=== PATIENT | male | born 1970 | race Caucasian/White ===

== ENCOUNTER 2024-04-06 05:03 | Observation (INO) ==
--- NOTE | 2024-02-24 14:03 | PAT Medication Instructions ---
Medication Instructions Date of Service February 24, 2024 Home Medications acetaminophen 325 mg tablet (Tylenol) 325 mg PO DAILY meloxicam 15 mg tablet 15 mg PO DAILY nebivolol 5 mg tablet 15 mg PO QAM MEDICATION INSTRUCTIONS: ASK your surgeon for instructions meloxicam 15 mg tablet 15 mg PO DAILY Take morning of surgery With a small sip of water, OTHERWISE NOTHING TO EAT OR DRINK AFTER MIDNIGHT: acetaminophen 325 mg tablet (Tylenol) 325 mg PO DAILY nebivolol 5 mg tablet 15 mg PO QAM Other Notes If you have any questions please call us at [phone] or [phone] or [phone] or [phone]
--- NOTE | 2024-03-09 14:55 | Anesthesiology Consultation ---
Date of Service March 09, 2024 Assessment & Plan (1) Encounter for pre-operative examination: - Outpatient joint assessment: Patient is currently scheduled for inpatient pathway. If re-evaluated and patient/surgeon requests outpatient pathway, patient is acceptable candidate for outpatient joint program from anesthesia standpoint pending surgeon's office assessment of pt motivation/support/completion of same day joint program preop requirements. Chart Review Chart Review: Acceptable Risk for Surgery and Patient seen in Pre Admission Testing Teaching & Discussion Pre-Anesthesia Teaching/Discussion Notes: Instructed NPO after midnight before surgery, except medications with 15 cc of water. Medication instructions provided according to the PAT guidelines. History Surgery Operation Date: 04/06/24 07:00 Proposed Procedures p Right Total Knee Arthroplasty - Brett Hoover MD Height/Weight Height: 5 ft 9 in Weight: 109.4 kg Allergies Allergy/AdvReac Type Severity Reaction Status Date / Time No Known Allergies Allergy Verified 02/24/24 12:07 Medications Home Medications Medication Instructions Recorded Confirmed Last Taken acetaminophen 325 mg tablet 325 mg PO DAILY 02/24/24 02/24/24 Unknown (Tylenol) meloxicam 15 mg tablet 15 mg PO DAILY 02/24/24 02/24/24 Unknown nebivolol 5 mg tablet 15 mg PO QAM 02/24/24 02/24/24 Unknown cholecalciferol (vitamin D3) 25 25 mcg PO QAM 03/09/24 03/09/24 Unknown mcg (1,000 unit) chewable tablet (Vitamin D3) magnesium 100 mg tablet mg PO QAM 03/09/24 03/09/24 Unknown omega 5-jkc-ijz-fish oil 120 cap PO QAM 03/09/24 Unknown mg-180 mg-500 mg capsule (Fish Oil) Additional Notes: Patient was instructed to stop magnesium and Vitamin D the day of surgery and to stop fish oil 2 weeks before surgery. This was also written on provided medication instructions. He verbalized understanding and agreement, denied questions, concerns or additional medications. Past Medical History Medical History (Updated 03/14/24 @ 16:41 by Jane Matta PA-C) HTN (hypertension) controlled, stable per pt Knee pain Patient denies h/o stroke, seizures, heart attack, heart failure, DM, blood clots/DVTs or blood transfusions. Exercise / Class Metabolic Activity II 4-5 Yardwork/Stairs/Walk up hill (ambulates with cane at home, denies chest discomfort or shortness of breath with one flight of stairs) Past Family History Family History Other No family history of adverse response to anesthesia Past Surgical History Surgical History History of vasectomy Past Anesthesia History No Hx of Anesthesia Complications and No Family Hx of Anesthesia Complications History of PONV No Hx of PONV and No Hx of Motion Sickness Social History Smoking Status: Former smoker Do You Dip or Chew Tobacco: No Smoking End Date: 2 mos ago Hx Alcohol Use: Yes Alcohol type: beer alcohol intake frequency: 0-2 drinks per day (2-3 beers daily) Hx Substance Use: No substance use type: does not use Review of Systems Patient denies chest pain, shortness of breath, dyspnea on exertion, snoring, witnessed apneas, reflux, fever, chills, cough, wheezing, or palpitations. Physical Exam Vital Signs Vitals BP 149/100 initial left arm automatic reading; repeat reading after several minutes of patient resting with feet flat on floor 147/98 manual left arm (Patient notes that he is stressed regarding surgery and knee pain) P 70 TEMP 98.2 SP02 97% on RA RESP 18 Physical Patient resting comfortably in chair in no acute distress, alert and oriented, responding appropriately throughout visit Full cervical extension range of motion without pain TMD 3.5 finger breadths Mallampati Score 2 Dentition: one crown, denies chipped or loose teeth, implants or bridges Lungs: normal respiratory effort. Good air movement, clear throughout to auscultation, no adventitious breath sounds Cardiac: regular rate and rhythm, no murmurs noted Carotid arteries: negative bruit bilat Lab Results Anesthesia Preop Results Results Anesthesia Widget: WBC 8.35 K/ul (4.8-10.8) 03/09/24 Hgb 15.6 g/dl (14.0-18.0) 03/09/24 Hct 44.0 % (42.0-52.0) 03/09/24 Plt 211 K/uL (130-400) 03/09/24 Na 131 mmol/L (136-145) L 03/09/24 K 4.3 mmol/L (3.5-5.1) 03/09/24 Cl 99 mmol/L (98-107) 03/09/24 CO2 21 mmol/L (21-32) 03/09/24 BUN 17 mg/dl (6-23) 03/09/24 Creat 0.87 mg/dl (0.6-1.4) 03/09/24 Glucose Level 92 mg/dl (70-99(Fasting)) 03/09/24 PT 12.1 Seconds (9.0-12.0) H 03/09/24 PTT 29 Seconds (21-31) 03/09/24 INR 1.1 (0.9-1.1) 03/09/24 Urine Color Yellow 03/09/24 Urine Appearance Clear (Clear) 03/09/24 Urine pH 5.5 (4.5-7.5) 03/09/24 Urine Specific [place] 1.006 (1.000-1.030) 03/09/24 Urine Protein Negative (Negative) 03/09/24 Urine Glucose (UA) Negative (Negative) 03/09/24 Urine Ketones Negative (Negative) 03/09/24 Urine Blood Negative (Negative) 03/09/24 Urine Nitrite Negative (Negative) 03/09/24 Urine Bilirubin Negative (Negative) 03/09/24 Urine Urobilinogen Negative (Negative) 03/09/24 Urine Leukocyte Esterase Negative (Negative) 03/09/24 Blood Type A Positive 03/09/24 Antibody Screen NEGATIVE 03/09/24 Testing Electrocardiogram Date: 03/09/24 NSR, rate 68 bpm Chest X-Ray Date: 03/09/24 No acute process.
--- NOTE | 2024-04-06 05:22 | History & Physical Bridge Note ---
Date of Service April 06, 2024 History & Physical Bridge Note I have examined the patient, reviewed the History & Physical and in the interval since the performance of the History & Physical I have noted the following changes of clinical significance: consent and site verified with patient and spouse.no changes noted
[2024-04-06] MEDS: LR 500ML BOLUS, THEN 15ML/HR IV SCH (05:50)
[2024-04-06] MEDS ORDERED: BUPIVACAINE 0.5 % 5 MG/1 ML PF 10ML VIAL ONE (06:14)
[2024-04-06] MEDS ORDERED: ROPIVACAINE 0.5% 5 MG/ML 30 ML VIAL ONE (06:14)
[2024-04-06] MEDS ORDERED: fentaNYL citrate PF 100 MCG/2 ML VIAL ONE (06:31)
[2024-04-06] MEDS ORDERED: MIDAZOLAM HCL 1 MG/ML 2ML VIAL ONE (06:31)
[2024-04-06] MEDS ORDERED: PROPOFOL IV EMULSION 10 MG/ML 20 ML VIAL IV ONE (06:33)
[2024-04-06] MEDS: TRANEXAMIC ACID 1,000 MG **IV Pre-op IV SCH (06:41)
[2024-04-06] MEDS: LR 60ML/HR IV SCH (06:51)
[2024-04-06] MEDS: ceFAZolin 2000MG 2,000 MG/15 ML SYR IV SCH ×2 (06:55→15:02)
[2024-04-06] MEDS ORDERED: fentaNYL citrate PF 100 MCG/2 ML VIAL IV PRN (07:07)
[2024-04-06] MEDS ORDERED: ePHEDrine sulfate 50 MG/ML AMP IV PRN (07:07)
[2024-04-06] MEDS ORDERED: ONDANSETRON INJ 2 MG/ML 2 ML VIAL IV PRN ×2 (07:07→10:26)
[2024-04-06] MEDS ORDERED: ATROPINE SULFATE 0.1 MG/ML 10ML SYR IV PRN (07:07)
[2024-04-06] MEDS: ORTHO JOINT ANESTHETIC ONE (07:29)
[2024-04-06] MEDS: TRANEXAMIC ACID 1,000 MG **IV Intra-op IV SCH (08:06)
[2024-04-06] MEDS: ROPIV 0.5% 246mg, Ketorolac 30mg, EPINEPHrine 0.5mg in NSS INFIL SCH (08:15)
--- NOTE | 2024-04-06 08:30 | Post Operative Brief Note ---
Immediate Post Op Note Date of Surgery April 06, 2024 Pre & Post Diagnosis Operation Date: 04/06/24 07:00 Pre-Op Diagnosis: Right Knee Osteoarthritis Post-Op Diagnosis: Right Knee Osteoarthritis I identified the patient and participated in the time-out.: Yes Procedure Operation Date: 04/06/24 07:00 Actual Procedures p Right Total Knee Arthroplasty, Cemented(Right) - Brett Hoover MD Surgeon Brett Hoover MD Party Planner Frank/Anna Estimated Blood Loss 20 Findings Consistent with Post-Op Diagnosis Severe medial and patellofemoral osteoarthritis Fluids See anesthesia report Complications None
--- NOTE | 2024-04-06 08:33 | Operative Report ---
Post Operative Report Pre & Post Diagnosis Operation Date: 04/06/24 07:00 Pre-Op Diagnosis: Right Knee Osteoarthritis Post-Op Diagnosis: Right Knee Osteoarthritis I identified the patient and participated in the time-out.: Yes Procedure Operation Date: 04/06/24 07:00 Actual Procedures p Right Total Knee Arthroplasty, Cemented(Right) - Brett Hoover MD Surgeon Brett Hoover MD Gun Striper Frank/Anna Estimated Blood Loss 20 Findings Consistent with Post-Op Diagnosis Fluids See anesthesia Specimens Bone pathology Drains None Complications None Indications Severe pain marked x-ray change failed conservative management Description of Procedure After the patient was appropriate notified site verified consent verified antibiotics confirmed to be given the right lower extremity was prepped and draped in his routine fashion. Tourniquet was inflated to 275 mmHg after exsanguination limb with a rubber Esmarch bandage for total of 55 minutes. Midline exposure was utilized. Parapatellar throbbing performed. Synovectomy completed osteophytes resected distal femur entered. Cruciates resected. Tibia subluxated menisci resected. Distal femur resected 11 mm proximal tibia 4 mm extension gap was excellent tibia and femur sized to a 6 appropriate cutting block applied to the femur anterior posterior, chamfer cuts made flexion gap checked it was excellent. Posterior capsule injected. Box cut made size 6 femur fit well. Tibia broached and reamed for size 6. 7 mm spacer was excellent. Patella tracked well. The patella was resected leaving close to 15 mm. 38 button was utilized tracked well. Ortho mixed and injected all about the knee. Trial of months removed knee Betadine soak for 2 minutes then cleaned out with Pulsavac and then the permanent cemented into position tibia femur and patella in that order at 12 minutes of tourniquet deflated minor bleeding points controlled electrocautery. The additional dose of TXA was given at that point in time. Bleeding was minimal. Estimated 20 cc total. After 14 minutes the knee was inspected there was no additional cement removal required wound was irrigated after the trial implant was removed with Betadine Pulsavac Betadine and then the permanent liner seated the knee reduced and closed at 40 degrees of flexion with #2 Vicryl 2-0 Vicryl and standstill clips appropriate dressing applied the patient transferred recovery in satisfactory understanding tolerated the procedure well. EBL again 20 cc or less crystalloid per anesthesia DVT prophylaxis with with Eliquis beginning tomorrow. Summary of implants size 6 femur posterior cruciate substituting size 6 tibial platform with rotating posterior cruciate substituting poly-7 mm thick patella size 38 2 bags [place] G cement these are all DePuy J&J ATT UNE system. I attest to the content of the Intraoperative Record and any orders documented therein. Any exceptions are noted below.
--- NOTE | 2024-04-06 08:35 | Discharge Summary ---
Date of Service April 07, 2024 Admission HPI Per Admitting Provider Knee pain right Principal Diagnosis Osteoarthritis right knee Discharge Data Allergies Allergy/AdvReac Type Severity Reaction Status Date / Time No Known Allergies Allergy Verified 04/06/24 05:38 Vaccinations None Consultations None Procedures Performed Operation Date: 04/06/24 07:00 Actual Procedures p Right Total Knee Arthroplasty, Cemented(Right) - Brett Hoover MD Ordered Studies 04/06/24 05:00 US - OR guided needle placemen Routine Hospital Course (1) Status post right knee replacement: Care pathway for total knee replacement Total Time Total Time Spent Total Time Spent (In Minutes): 5 Discharge Plan Discharge Items Reason For Visit: Right Knee Osteoarthritis Discharge Diagnosis: Same Condition on Discharge: Good Activity: Per Instructions section Lifting: Wait until after follow-up appointment Bathing: Keep incision dry Sexual Activity: Wait until after follow-up appointment Exercise/Sports: Wait until after follow-up appointment Call non-emergency contact if: your temperature is above 101.5, your wound has increased redness, your wound has increased drainage and your wound pain has increased Follow-up/Referrals: Yovani Del Real [Primary Care Provider] - Felipa Attending Provider Instructions: DIET: * Resume previous diet. MEDICATIONS: * Please take your prescriptions as instructed at your pre-op appointment and/or see medication discharge instructions listed above. * If concerns develop, call your physician's office at . SPECIAL CARE INSTRUCTIONS: * Ice/Elevate as instructed. * Keep dressing clean, dry, intact. * Your surgical extremity may be discolored due to prepping agents used on the skin. A bluish-green tint is a normal variant and should not cause alarm. Call your doctor at [phone] if: * Temperature above 101 degrees * Pain not relieved by pain medicine ordered * There is increased drainage or redness from any incision * You have any unanswered questions, problems or concerns. FOLLOW UP VISIT: * If not already scheduled, please call the office at to schedule a follow-up appointment. Pending Studies at Discharge: Yes (Bone pathology) Stand-Alone Forms: [facility] Medications and DC Order Prescriptions: No Action meloxicam 15 mg Tablet 15 mg PO DAILY nebivolol 5 mg Tablet 15 mg PO QAM acetaminophen [Tylenol] 325 mg Tablet 325 mg PO DAILY magnesium 100 mg Tablet PO QAM Patient Comments: unknown dose cholecalciferol (vitamin D3) [Vitamin D3] 25 mcg (1,000 unit) Tablet,Chewable 25 mcg PO QAM Fish Oil 120-180-500 mg Capsule 1 cap PO QAM Admission Data Admit Date/Time: 04/06/24 08:52 Attending Provider: Brett Hoover Admit Provider: Brett Hoover Primary Care Provider: Yovani Del Real Other Providers: [facility],Home Healthcare
--- NOTE | 2024-04-06 08:35 | Orthopedic Progress Note ---
Date of Service April 06, 2024 Orthopedic Progress Note Tolerated right total knee replacement well denies any chest pain shortness of breath fever chills nausea vomiting headache. Vital signs are stable he is afebrile. Neurovascular check limited by spinal. X-ray pending. Assessment doing well continue care pathway family notified.
--- NOTE | 2024-04-06 08:44 | Operative Report ---
Post Operative Report Pre & Post Diagnosis Operation Date: 04/06/24 07:00 Pre-Op Diagnosis: Right Knee Osteoarthritis Post-Op Diagnosis: Right Knee Osteoarthritis I identified the patient and participated in the time-out.: Yes Procedure Operation Date: 04/06/24 07:00 Actual Procedures p Right Total Knee Arthroplasty, Cemented(Right) - Brett Hoover MD Surgeon Brett Hoover MD Tube Drawing Supervisor Frank/Anna Estimated Blood Loss 20 Findings Consistent with Post-Op Diagnosis Specimens Bone pathology Disposition Accompanied Patient To Recovery: Yes Disposition: Recovery Room Description of Procedure Patient was given a regional block, he is taken to the operating room underwent sedation per the anesthesia providers. Right lower extremity was prepped and draped in usual sterile fashion. A surgical timeout was performed. Patient underwent a right total knee arthroplasty, please see Dr. Hoover's operative report for full details. I was present throughout the case from initial positioning through wound closure, I assisted with soft tissue retraction, surgical cuts, hardware placement, wound closure, postoperative dressing placement. Patient was awakened and taken to recovery room in stable condition. I attest to the content of the Intraoperative Record and any orders documented therein. Any exceptions are noted below.
--- NOTE | 2024-04-06 08:46 | Operative Report ---
Post Operative Report Pre & Post Diagnosis Operation Date: 04/06/24 07:00 Pre-Op Diagnosis: Right Knee Osteoarthritis Post-Op Diagnosis: Right Knee Osteoarthritis I identified the patient and participated in the time-out.: Yes Procedure Operation Date: 04/06/24 07:00 Actual Procedures p Right Total Knee Arthroplasty, Cemented(Right) - Brett Hoover MD Surgeon SANDRA Hoover MD Gas Compressor Turbine Operator Frank/Anna HENSON Estimated Blood Loss 20 Findings Consistent with Post-Op Diagnosis see operative report Specimens see operative report Drains none Complications none Disposition Accompanied Patient To Recovery: Yes Indications This 53-year-old male presented to the office with complaints of persisting right knee pain. He had tried conservative care measures were improvement. He elected to proceed with surgical intervention after being educated about potential risks and outcomes. Preoperative imaging was obtained. Description of Procedure The patient was administered a spinal anesthetic and then taken to the operating room where he was given sedation. He was prepped and draped in the usual sterile fashion. Please see Dr. Hoover's operative report for specifics of the procedure. I was present for the entire case from initial patient positioning through final wound closure. Assistance was provided in tissue re traction, hemostasis, trial implant placement, final implant placement, and final wound closure. The patient was taken to the recovery room in satisfactory condition. I attest to the content of the Intraoperative Record and any orders documented therein. Any exceptions are noted below.
--- NOTE | 2024-04-06 08:59 | XRay Report ---
XR knee RT 1 or 2V routine CLINICAL HISTORY: S/P R TKA COMPARISON: Right knee radiographs March 09, 2024. FINDINGS: Alignment of the total right knee arthroplasty is anatomic. There is no periprosthetic fra cture or unexpected radiopaque foreign body. There are skin velma. IMPRESSION: Expected findings following total right knee arthroplasty. ACT 112: Negative or not required by law. Electronically signed by: Isaias Trejo M.D. 04/06/2024 8:58 AM
--- NOTE | 2024-04-06 10:19 | Anesthesiology Progress Note ---
Date of Service April 06, 2024 Anesthesia Post Procedure Vital Signs Vital Signs: Temp Pulse Resp BP Pulse Ox O2 Del Method 04/06/24 10:10 97.5 F L 58 L 17 125/86 98 Room Air 04/06/24 10:00 59 L 18 120/86 99 Room Air 04/06/24 09:50 64 13 118/88 97 Room Air 04/06/24 09:40 58 L 16 119/89 99 Room Air 04/06/24 09:30 97.5 F L 60 16 112/79 97 Room Air 04/06/24 09:20 62 18 124/70 96 Room Air 04/06/24 09:10 62 14 107/70 96 Room Air 04/06/24 09:00 57 L 12 114/75 97 Room Air 04/06/24 08:50 58 L 10 L 100/64 96 Room Air 04/06/24 08:41 96.8 F L 60 14 95/66 L 95 Room Air 04/06/24 05:40 97.3 F L 67 20 144/113 H 97 Room Air Transfer of Care Handoff Completed per policy Notes Mental Status: alert / awake / arousable and participated in evaluation Patient Amnestic to Procedure: Yes Nausea / Vomiting: adequately controlled Pain: adequately controlled Airway Patency, RR, SpO2: stable & adequate BP & HR: stable & adequate Hydration State: stable & adequate Neuraxial Anesthesia: was administered and sensory block is resolving Anesthetic Complications: no major complications apparent and Pt Satisfied with anesthetic care
[2024-04-06] MEDS ORDERED: MAGNESIUM HYDROXIDE SUSP 30 ML UDC PO PRN (10:26)
[2024-04-06] MEDS ORDERED: ALUMINUM/MAGNESIUM SUSP 30 ML UDC PO PRN (10:26)
[2024-04-06] MEDS ORDERED: bisacodyL 10 MG SUPP PR PRN (10:26)
[2024-04-06] MEDS ORDERED: TAMSULOSIN HCL 0.4 MG CAP PO PRN (10:26)
[2024-04-06] MEDS ORDERED: NALOXONE HCL 0.4 MG/1 ML VIAL/CARP IV PRN (10:26)
[2024-04-06] MEDS ORDERED: diphenhydrAMINE 50 MG/ML VIAL IV PRN (10:26)
[2024-04-06] MEDS ORDERED: METOCLOPRAMIDE HCL INJ 5 MG/ML 2 ML VIAL IV PRN (10:26)
[2024-04-06] MEDS ORDERED: HYDROmorphone INJ 0.5 MG/0.5 ML SYR IV PRN (10:26)
[2024-04-06] MEDS: SODIUM CHLORIDE 0.9% 1,000 ML IV SCH (11:07)
[2024-04-06] MEDS: METOPROLOL TARTRATE 25 MG TAB PO SCH (11:37)
[2024-04-06] MEDS: KETOROLAC 30 MG/ML VIAL IV SCH (11:37)
[2024-04-06] MEDS: DOCUSATE SODIUM 100 MG CAP PO SCH (11:37)
[2024-04-06] MEDS: MULTIVITAMIN TAB PO SCH (11:38)
--- OUTSIDE RECORDS SUMMARY | 2024-04-06 12:06 | External Medical Summary | Continuity of Care Document ---
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 Name Role Phone Yovani Del Real Primary Care Physician [phone] Encounter [facility] [id number] Date(s): 03/09/24 - 03/09/24 [facility] [address] [place] [id number] Medicine [address] [place] [id number] Encounter Diagnosis Right knee DJD(Discharge Diagnosis) - 03/09/24 Discharge Disposition: Home or Self Care Attending Physician: NATIVIDAD Rowe, Gisela Sales Referring Physician: MD Kiko, Brett Lo Allergies, Adverse Reactions, Alerts No Known Medication Allergies Medications meloxicam 15 mg oral tablet Start: 01/22/24 4:44:00 PM EDT, 1 tab, PO, Daily, Disp# 30 tab, Refills: 1, with food, Pharmacy: [id number] Start Date: 01/22/24 Status: Ordered nebivolol 10 mg oral tablet Start: 01/11/24 9:35:00 AM EDT, 1 tab, PO, Daily Start Date: 01/11/24 Status: Ordered Mental Status 03/09/24 Barriers to Learning one year None evide nt Mandatory Health Literacy Documentation Yes Health Literacy Communication Barriers N ever Primary Language Kyrgyz Problem List Condition Confirmation Course Effective Dates Status H ealth Status Informant Right knee DJD Confirmed Active Bilateral primary osteoarthritis of knee Confirmed Active Diagnosis Diagnosis Type Effective Dates Health Status Cl inical Service Informant Right knee DJD Discharge Diagnosis 03/09/24 Vital Signs Most recent to oldest [Reference Range]: 1 Height 178 cm (03/09/24 1:43 PM) Patient Weight 107 kg (03/09/24 1:43 PM) Body Mass Index 33.77 kg/m2 (03/09/24 1:43 PM) Temperature [36.5-37.9 DegC] 36.2 DegC *LOW* (03/09/24 1:43 PM) Heart Rate 69 bpm (03/09/24 1:43 PM) Respiratory Rate 18 br/min (03/09/24 1:43 PM) Blood Pressure 180/120mmHg (03/09/24 1:43 PM) Social History Social History Type Response Smoking Status Former Smoker, quit in last 30 days Sex Male Sex Representation Male (finding) Pre-OP H & P * NATIVIDAD Rowe, Gisela R: PERFORM, MODIFY, MODIFY Event Display: Pre-OP H & P Authored Date: [id number] Name:ELEN LIN Patient Number:[id number] :1970 Date of Service:03/09/2024 Chief Complaint right TKA pre op History of Present Illness Halle Mayers presents today for preoperative history and physical. He is scheduled to have a right total knee arthroplasty by Dr. Hoover on March 29, 2024.He has been having 1-1/2 to 2 years worth of pain in both of his knees. The right knee is worsethan the left. He notes pain on a daily basis. It interferes with his activities of daily living . He complains of sharp bilateral knee pain as well as stiffness. He has previously been on meloxicam and Tylenol for management of his pain. He is tried cortisone injections and viscosupplementation at previous facility; [facility]. He states that he did not get any improvement with either of those types of injections. He denies prior knee injuries. He has not had previous knee surgery. He denies any numbness or tingling in either extremity. He states that his knee pain is interfering with all his normal activities that he enjoys. He has difficulty with ambulating without assistance. He has tried [id number] knee braces. He feels that he should use a cane at times. It does interrupt his sleep. He has pain at rest. Due to his failure of conservative treatment surgical intervention was recommended. Patient agrees to proceed with surgery. Review of Systems Denies any recent cough, cold, fevers, chills or flulike symptoms. He denies any lightheadedness, dizziness, syncopal episodes, headaches, migraines or seizures. Denies any bleeding or clotting disorders or history of DVT or pulmonary embolism. Denies any recent hospitalizations. Denies any historyof metal sensitivity, latex allergy or MRSA. Denies any shortness of breath or chest pain. Denies abdominal pain, heartburn, indigestion, nausea, vomiting, diarrhea or constipation. Denies any urinary tract infections. Denies any hearing or vision changes. Denies any dental problems. Physical Exam Vitals & Measurements T:36.2C HR:69(Monitored) RR:18 BP:180/120 SpO2:98% HT:178cm WT:107.000kg(Dosing) WT:107kg BMI:33.77 BMI:33.77 kg/m2 Vitals:Last Updated 03/09/24 13:43 Date Temp BP Location Pulse RR SpO2 Pain 03/09/24 36.2 180/120 69 18 98 8 02/08/24 0 01/11/24 7 Height and Weight:Last Updated 03/09/24 13:43 Date BMI Wt(kg) Wt(lb) Method Ht(cm) (ft-in) Method 03/09/24 33.77 107 235 Standing Scale 178 5-10 01/11/24 33.83 107.2 236 Standing Scale 178 5-10 Standing General:Well-dressed, well-nourished. Normal mood and affect. Alert and oriented x3. HEENT:Head: Atraumatic, normocephalic. Eyes: Extraocular movements intact, pupils equal round and reactive to light, sclera normal. Ears: Ears grossly normal, TMs are clear normal light reflex.Nose: Nares are patent bilaterally. Throat: Oropharynx clear mucous membranes moist good dentition uvula midline. Neck:Supple, no lymphadenopathy, nontender palpation, full range of motion. Cardiac:Regular rate and rhythm, normal S1, S2. No murmurs, rubs or gallops appreciated. Lungs:Clear to auscultation bilaterally. No adventitious sounds. No accessory muscle use. Abdomen:Soft, nontender, nondistended, normal bowel sounds heard in all 4 quadrants. Extremities: Focus on bilateral lower extremities: Femoral and sciatic nerve function intact. Left knee moderate effusion. Right is less but present Varus alignment bilaterally. Collateral and cruciate intact b/l Hip ROM supple and pain free Diagnostic Results Review of bilateral knee x-rays from outside Review of right knee MRI from outside facility reveals meniscal extrusion and bone marrow edema of medial compartment, tibia, and femur Assessment/Plan 1.Right knee DJD Patient is scheduled for right total knee arthroplasty with Dr. Hoover in April 06, 2024.Risk and complications of the procedure were explained to the patient and include but are not limited to infection, pain, bleeding, scarring, nerve and blood vessel damage, wound problems, weakness, stiffness, incomplete relief of symptoms, hardware failure, fracture, loosening, wear, tendon or liga ment injury, blood clots, embolisms, heart attack, stroke and . All questions were answered and informed consent was obtained. He will attend preadmission testing later today which she will obtain a preoperative CBC, BMP, PTT, PT, urinalysis, urine culture if indicated, type and screen, chest x-ray and EKG. He will also have preoperative medical clearance from his family physician. He was instructed on the usage of the CHG wipes preoperatively. He was instructed on dental prophylaxis postoperatively. He had his last dental appointment about a week ago for cleaning. He will use crutches and/or a walker after his surgery.We will use Eliquis 2.5 mg p.o. twice daily for 4 weeks after surgery for DVT prophylaxis.This will be prescribed at the time of discharge from the hospital as well as with his pain medication. He will need approximately 3 months out of work. He will obtain [facility] paperwork and get that to us to be completed. Postoperative course was discussed. Postop follow-up has been scheduled. He will attend outpatient physical therapy at [facility] physical therapy group. He will also get home health for the first 2 weeks after his procedure. He understands and agrees with the plan. All questions were answered. He knows to call with any further problems, questions or concerns. This chart was completed utilizing [employer] voice recognition software. Grammatical errors, random word insertions, pronoun errors, and in complete sentences are an occasional consequence of the system. Any questions or concerns about the content, text, or information contained within the body of this dictation should be addressed directly to the provider for clarification. Problem List/Past Medical History Ongoing Bilateral primary osteoarthritis of knee Right knee DJD Hypertension Procedure/Surgical History None Medications Home meloxicam(meloxicam 15 mg oral tablet), 15 mg= 1 tab, PO, Daily, 1 refills nebivolol(nebivolol 10 mg oral tablet), 10 mg= 1 tab, PO, Daily Allergies No Known Medication Allergies Social History Smoking Status Former Smoker, quit in last 30 days Denies alcohol or recreational drug use. He would like to use crutches after surgery. He will need these or a walker while in the hospital after evaluation by the physical therapist. Family History Reviewed and noncontributory. Electronic Signature on File Electronically Reviewed/Signed by: Gisela Rowe PA-C Author Signature Dt/Tm:03/10/2024 03:44PM Division of Sports Medicine Electronically Reviewed/Signed by: Brett Hoover MD Cosigner Signature Dt/Tm: 03/10/2024 05:08 PM Software Implementation Project Manager for Clinical Affairs, [facility] Professor in Orthopaedics District Wire Chief, [facility] Patient Care team information Care Team Personnel Name: MD Gt, Yovani Blanco Position: Referring Member Role: Primary Care Provider Address: [address] [place] [id number]
--- OUTSIDE RECORDS SUMMARY | 2024-04-06 12:06 | External Medical Summary | Continuity of Care Document ---
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 Name Role Phone [employer] - Disability Care Team Information Recei liang [phone] Problems Active Problems Provider Date Smoker Yovani Del Real MD Onset: 04/06 Essential hypertension Yovani Del Real MD Onset : 04/14/2023 Social History Type Date Description Comments Sex Unknown Tobacco Use Start: Unknown End: Unknown Former Cigarette Smoker Cigarette Use 03/21/2024 Quit - Age 52 Smoking Status Reviewed: 03/21/24 Former Cigarette Smo ker Tobacco Use Start: Unknown Never Smoked Cigars Tobacco Use Start: Unknown Never Smoked A Pipe Smokeless Tobacco Never Used Smokeless To bacco ETOH Use Occasionally consumes alcoho l Recreational Drug Use Denies Drug Use Tobacco Use Start: Unknown Patient is a cur rent smoker, smokes every day Allergies and adverse reactions Description No Known Drug Allergies Medications Active Medications SIG Qnty Indications Ordering Provider Date Nebivolol [id number] Tablets 1 by mouth every day 30tabs I10 Yovani Del Real MD 04/14/2023 [id number] Tablets 1 twice a day w/ food - Unknown Voltaren Arthritis Pain1% Gel apply to affected area 2-4 g up to 3 x/day. Unknown Immunizations CPT Code Status Date Vaccine Lot # [id number] Refused 03/21/2024 Influenza,Unspecified [id number] Refused 03/21/2024 Moderna Sars-Co v-2 (Cov-19) vacc,100 mcg/ 0.5 mL 12Y+EMR Doc Only U-FLU Refused 04/14/2023 Influenza,Unspecified [id number] Refused 04/14/2023 Moderna Sars-Co v-2 (Covid-19) Vaccine, BiValent Booster [id number]+ [id number] Refused 04/14/2023 Shingrix Vital Signs Date Vital Result Comment 03/21/2024 3:39pm BP Systolic 132 mmHg BP Diastolic 84 mmHg Body Temperature 97.3 F Heart Rate 88 /min Respiratory Rate 16 /min Weight 242.00 lb Weight 109.771 kg Height 70 inches 5'10" BMI (Body Mass Index) 34.7 kg/m2 [place] Body Weight 166 lb 07/13/2023 10:13am BP Systolic 136 mmHg BP Diastolic 88 mmHg Body Temperature 97.3 F Heart Rate 80 /min Respiratory Rate 16 /min Weight 239.00 lb Weight 108.410 kg Height 70 inches 5'10" BMI (Body Mass Index) 34.3 kg/m2 [place] Body Weight 166 lb Procedures Date Code Description Status 03/21/2024 3079F PVRP Diastolic BP 80-89 [facility] Completed 03/21/2024 3075F PVRP Systolic BP 130 To 139 [facility] Completed Medical Devices Description No Information Available Encounters Type Date Location Provider Dx Diagnosis Office Visit 03/21/2024 4:00p [facility] Yovani Del Real MD Z01.818 Encounter for other preprocedural examination I10 Essential (primary) hypertension Assessments Date Code Description Provider 03/21/2024 Z01.818 Encounter for other preproce dural examination Yovani Del Real MD 03/21/2024 I10 Essential hypertension Adelso Del Real MD Plan of Treatment 03/21/2024 - Yovani Del Real MD* Z01.818 Encounter for other preprocedural examination* Comments:* should be stable to proceed w surgery reviewed all preop tests (labs, EKG, CXR) * I10 Essential hypertension* Comments:* Continue current medication. Functional Status Description No Information Available Mental Status Description No Information Available Referrals Description No Information Available
--- NOTE | 2024-04-06 13:55 | Orthopedic Progress Note ---
Date of Service April 06, 2024 Assessment & Plan Admission and Anticipated Discharge Date Admission Date: April 06, 2024 Orthopedic Progress Note Is doing well this afternoon is no major issues is eating and drinking. His neurovascular check is now normalized he can do a straight leg raise he can bend his knee to 60 to 80 degrees he can do ankle pumps and plantar and dorsiflexion inversion eversion. The dressing is clean and dry. This point time get him out of bed saline lock his IV and continue his exercises. Do not start his anticoagulation till tomorrow.
[2024-04-06] MEDS: ACETAMINOPHEN 500 MG TAB PO SCH (15:01)
[2024-04-06] MEDS: FERROUS GLUCONATE 324 MG TAB PO SCH (16:35)
[2024-04-06] MEDS: ASCORBIC ACID 500 MG TAB PO SCH (16:36)
[2024-04-06] MEDS: oxyCODONE HCL IR 5 MG TAB (IMMEDIATE RELEASE) PO PRN (18:58)
[2024-04-06 19:35] VITALS: RESP 18
[2024-04-06] MEDS: SENNA 8.6 MG TAB PO SCH (19:37)
[2024-04-07 06:27] LABS: Hematocrit (blood only) 31.3 % (42.0-52.0); Hemoglobin 11.2 g/dl (14.0-18.0); Mean Corpuscular Hemoglobin 34.5 pg (25.0-34.0); Mean Corpuscular Hgb Conc 35.8 g/dL (32.0-36.0); Mean Corpuscular Volume 96.3 fL (80.0-100.0); Mean Platelet Volume 10.1 fL (9.4-12.4); Platelet Count 145 K/uL (130-400); RDW Coefficient of Variation 11.4 % (11.5-14.5); RDW Standard Deviation 40.4 fL (36.4-46.3); Red Blood Count 3.25 M/uL (4.70-6.10); White Blood Count 8.76 K/ul (4.8-10.8)
--- NOTE | 2024-04-07 06:39 | Orthopedic Progress Note ---
Date of Service April 07, 2024 Assessment & Plan Admission and Anticipated Discharge Date Admission Date: April 06, 2024 Orthopedic Progress Note Postop day #1 status post right total knee replacement. Patient is up and awake. Denies any chest pain shortness of breath fever chills nausea vomiting headache. Vital signs are stable he is afebrile. Neurovascular check from sciatic nerve intact and do straight leg raise. Wound dressing clean dry and intact. Calves nontender. A.m. labs pending. Assessment doing well status post right total knee replacement. Discharge after PT OT this morning. To start Eliquis this morning. Follow-up in the office in 2 weeks.
[2024-04-07 06:44] LABS: BUN Creatinine Ratio 21.4 (10-20); Calcium 8.1 mg/dl (8.6-10.3); Creatinine Clr Calc Pharmacy 109.1 ml/min; Est GFR (Non-African American) 88.9 ml/min; Potassium 4.4 mmol/L (3.5-5.1)
[2024-04-07 07:49] VITALS: TEMP 97.7; O2SAT 94
[2024-04-07] MEDS: APIXABAN 2.5 MG TAB PO SCH (09:28)
[2024-04-07] MEDS: dexAMETHasone 10 MG in SYRINGE 0 ML IV SCH (09:28)
--- NOTE | 2024-04-07 09:43 | Orthopedic Progress Note ---
Date of Service April 07, 2024 Assessment & Plan (1) Status post right knee replacement: Plan: The patient will be discharged to home today with home health services. These have already been scheduled. His postsurgical dressing was changed today by me. Jignesh stocking was applied. He can leave this in place through the weekend. They can be changed on Thursday by home health services if needed for soiling. Continue using the knee immobilizer today and tomorrow. It can be discontinued entirely on Thursday morning. Prescriptions for Eliquis and Percocet were sent to his pharmacy. Follow-up in the office with me in 2 weeks on 04/21 as scheduled for staple removal. Ice and elevate the knee frequently to reduce pain and swelling. Use his walker for ambulation. Written discharge instructions were provided. Admission and Anticipated Discharge Date Admission Date: April 06, 2024 Subjective This 53-year-old male is seen today in follow-up for his right knee. He is 1 day status post right total knee arthroplasty. The patient states he did fairly well overnight. He is having some pain. Denies any chest pain, shortness of breath, nausea, vomiting, or abdominal pain. He has been ambulatory. He is currently finishing his breakfast. He denies any numbness or tingling. He feels ready for discharge to home. Review of Systems Review of Systems: Unchanged from yesterday. Physical Exam Physical Exam: General: Well-developed, well-nourished, middle-aged male, in no acute distress. Lying in bed. Alert and oriented. Skin: Warm dry with good turgor. Postsurgical dressings are in place on the right knee. Upon removal, he has expected postoperative edema. No ecchymosis. Surgical incision is closed. Jam are in place. Wound edges are well- approximated. No erythema. No drainage. Musculoskeletal: The patient has intact motor function of his right hip, knee, and ankle. He has nearly full terminal extension. Flexion to greater than 60 degrees. He is able to set his quad and perform a straight leg raise. Neurologic: Gross sensation is intact across the right leg by soft touch. Peripheral pulses are 2+. Results & Data Vital Signs (Past 12 Hours) Vital Signs Temp Pulse Resp BP Pulse Ox O2 Del Method 04/07/24 07:49 36.5 C 83 18 131/86 94 Room Air 04/07/24 04:02 36.8 C 70 18 122/79 99 Room Air 04/06/24 22:54 36.8 C 68 18 122/83 97 Room Air Laboratory Results CBC obtained this morning shows a white count of 8.76. H&H of 11.2 and 31.3. Platelets 145,000. PRP shows normal electrolytes. BUN of 21 with creatinine 0.98. Glucose this morning is 115.
[2024-04-07 12:12] VITALS: BP 123/82; PULSE 80
== END 2024-04-07 14:00 | disposition home health service (06) ==
LOC: 3E 05:03 → ASU 05:03